=== PATIENT | male | born 1965 | race Caucasian/White ===

== ENCOUNTER 2016-10-13 12:26 | Emergency (ER) | payer OTHER ==
[~2016-10-13] VITALS: Wt 93.0 kg
[~2016-10-13 12:26] MED LIST: LISI20TA11 PO; NORVAC PO
[2016-10-13] MEDS ORDERED: FLUT9.9S NASAL (13:54)
[2016-10-13] MEDS ORDERED: AZIT250T94 PO (13:54)
[2016-10-13] MEDS ORDERED: UDROBDM PO (13:54)
[2016-10-13] MEDS ORDERED: CETI10CA PO (13:55)
--- NOTE | 2016-10-13 13:59 | ERD ---
ER Documentation Chief Complaint Date/Time DATE: 10/13/16 TIME: 13:57 Chief Complaint cold symptoms and cough HPI This a 51-year-old male presents to the emergency department today complaining of cough, nasal congestion and sore throat for the past week. Patient states he has tried Tylenol and NyQuil with no improvement in symptoms. States he is unsure if he has had a fever. Denies any sick contacts. ROS All systems reviewed and are negative except as per history of present illness. Medications Home Meds Active Scripts Cetirizine Hcl* (Zyrtec*) 10 Mg Capsule, 10 MG PO DAILY, #10 TAB.CHEW Prov:FRANCISCA TOUSSAINT PA-C 10/13/16 Guaifenesin-Dextromethorphan* (Robitussin* DM) 100MG/10MG/5ML Syrup, 10 ML PO Q4H Y for COUGH for 5 Days, ML Prov:FRANCISCA TOUSSAINT PA-C 10/13/16 Azithromycin* (Zithromax*) 250 Mg Tablet, 250 MG PO .ZPACK DIRECTED, #6 TAB TAKE 500 MG (2 TABS) THE FIRST DAY THEN 250 MG (1 TAB) DAYS 2-5 Prov:FRANCISCA TOUSSAINT PA-C 10/13/16 Fluticasone Propionate (Flonase Allergy Relief) 9.9 Ml [place].susp, 2 SPRAY NASAL DAILY, #1 BOTTLE TO EACH NOSTRIL Prov:FRANCISCA TOUSSAINT PA-C 10/13/16 Reported Medications [Norvac] No Conflict Check, 10 PO DAILY 03/29/16 Lisinopril* (Lisinopril*) 20 Mg Tablet, 20 MG PO DAILY, #30 TAB 03/29/16 Allergies Allergies: Coded Allergies: No Known Allergy (Unverified , 03/29/16) PMhx/Soc History of Surgery: No Anesthesia Reaction: No Hx Neurological Disorder: No Hx Cardiac Disorders: No Hx Psychiatric Problems: No Hx Miscellaneous Medical Probl: Yes (HTN) Hx Alcohol Use: No Hx Substance Use: No Hx Tobacco Use: No Smoking Status: Never smoker Physical Exam Vitals Vital Signs Date Time Temp Pulse Resp B/P Pulse Ox O2 Delivery O2 Flow Rate FiO2 10/13/16 12:33 98.0 94 20 144/87 97 Physical Exam Const: No acute distress Head: Atraumatic Eyes: Normal Conjunctiva ENT: Ears TMs normal. Nose no drainage. Throat with mild erythema no exudate. Neck: Full range of motion..~ No meningismus. Resp: Clear to auscultation bilaterally. No absent breath sounds. No wheezing. Cardio: Regular rate and rhythm, no murmurs Abd: Soft, non tender, non distended. Normal bowel sounds Skin: No petechiae or rashes Neur: Awake and alert Psych: Normal Mood and Affect Procedures/MDM This 51-year-old male who presents to the emergency department today complaining of cough, nasal congestion for the past week and no improvement with [id number] medications. Patient symptoms at this time is consistent with URI likely viral however given duration of symptoms and patient's age and will treat the patient with a prescription for azithromycin that would cover him for strep pharyngitis, pneumonia and sinusitis. I do not feel the patient requires a chest x-ray. He is afebrile and otherwise well-appearing. His oxygen saturation 97%. Patient symptoms may also be related to allergy related symptoms. I have low suspicion for strep pharyngitis, peritonsillar abscess, retropharyngeal abscess, otitis media, PNA, sinusitis, abscess, meningitis, sepsis, or other acute infectious bacterial process. Patient will also be given a prescription for Flonase, Zyrtec and Robitussin. At this time the patient is stable for discharge and outpatient management. They should follow up with their PCP in the next 1-2. They may return to the emergency department sooner if symptoms persist or worsen. Patient understood and agreed with the plan. Departure Diagnosis: Primary Impression: Upper respiratory infection URI type: unspecified URI Qualified Code: J06.9 - Upper respiratory tract infection, unspecified type Condition: Fair Patient Instructions: Preventing Common Respiratory Infections Referrals: [facility] (PCP) Additional Instructions: Llame al doctor MAANA y ivis lanie ALLYSON PARA DENTRO DE 1-2 PEREZ.Dgale a la secretaria que nosotros le instruimos hacer esta allyson.Avise o llame si duran condicin se empeora antes de la allyson. Regresa aqui si peor o no mejor. Take all medications as prescribed FRANCISCA TOUSSAINT PA-C Oct 13, 2016 13:59
[2016-10-13 14:22] VITALS: BP 134/83; PULSE 87; RESP 18; TEMP 99.1
== END 2016-10-13 14:23 | disposition home or self-care (01) ==
LOC: FTE 12:26
DX: J06.9 Acute upper respiratory infection, unspecified (principal); I10 Essential (primary) hypertension
CPT/HCPCS: 99283